=== PATIENT | male | born 1980 | race Caucasian/White ===

== ENCOUNTER 2022-10-10 22:01 | Observation (INO) | payer OTHER, SELFPAY ==
[2022-10-10 22:09] VITALS: BP 160/98; PULSE 67; RESP 16; TEMP 36.6; O2SAT 98; BMI 26.4
--- NOTE | 2022-10-10 22:27 | PC.NURSE ---
patient states developed abdominal pain with nausea and vomiting yesterday around 3am. states he has been unable to keep anything down and keeps vomiting bile. states he has always had stomach problems . had gallbladder removed 2years ago and states he has continued to have complications since then. tried zofran and phenergan at home and has had no relief. patient pacing back and forth in room and states he is in too much pain and can not get comfortable. states he had pain to bilateral sides of abdomen that feel like spasms and cramps .
[2022-10-10 23:22] LABS: Basophils Percent Auto 0.2 % (0.2-2.0); Hematocrit 46.7 % (42.0-54.0); Hemoglobin 16.4 g/dL (14.0-18.0); Immature Granulocytes Abs Auto 0.15 10^3/uL (0.00-0.03); Immature Granulocytes Pct Auto 0.7 % (0.0-0.5); Lymphocytes Absolute Auto 2.7 10^3/uL (1.2-3.8); Lymphocytes Percent Auto 12.5 % (20.5-60.0); Mean Corpuscular HGB Conc 35.1 g/dL (29.9-35.2); Mean Corpuscular Hemoglobin 31.4 pg (25.9-34.0); Mean Corpuscular Volume 89.5 fL (80.0-94.0); Mean Platelet Volume 10.7 fL (9.5-13.5); Monocytes Absolute Auto 1.5 10^3/uL (0.3-0.8); Monocytes Percent Auto 6.9 % (1.7-12.0); Neutrophils Absolute Auto 17.4 10^3/uL (1.4-6.5); Neutrophils Percent Auto 79.7 % (43.0-75.0); Platelet Count 334 10^3/uL (150-450); Red Blood Count 5.22 10^6/uL (4.70-6.10); Red Cell Distribution Width 11.9 % (11.0-15.0); White Blood Count 21.8 10^3/uL (4.0-11.0)
[2022-10-10] MEDS: 0.9 % SODIUM CHLORIDE 1,000 ML 999 ML (23:25)
[2022-10-10] MEDS: FAMOTIDINE/PF 20 MG/2 ML VIAL IV (23:25)
[2022-10-10] MEDS: ONDANSETRON PF 4 MG/2 ML VIAL IV (23:25)
[2022-10-10] MEDS: KETOROLAC TROMETHAMINE 30 MG/ML VIAL IVP (23:25)
[2022-10-10 23:36] LABS: Alanine Aminotransferase 32 U/L (16-63); Albumin Globulin Ratio 1.7; Alkaline Phosphatase 92 U/L (46-116); Anion Gap 18.4; Aspartate Amino Transferase 56 U/L (15-37); BUN Creatinine Ratio 11.8; Bilirubin Total 0.7 mg/dL (0.2-1.0); Calcium 10.5 mg/dL (8.5-10.1); Chloride 96 mmol/L (98-107); Estimated GFR (African America 38 (>=60); Estimated GFR (Non-African Ame 32 (>=60); Globulin 3.6 g/dL; Glucose 124 mg/dL (74-106); Potassium 3.4 mmol/L (3.5-5.1); Sodium 133 mmol/L (136-145); Total Protein 9.6 g/dL (6.4-8.2)
--- NOTE | 2022-10-10 23:43 | ED_ITS ---
HPI - Nausea/Vomiting/Diarrhea General Chief complaint: Nausea/Vomiting/Diarrhea Stated complaint: NAUSEA/VOMITING Time Seen by Provider: 10/10/22 22:59 Source: patient History of Present Illness HPI Narrative: 42-year-old male presents for evaluation of nausea, vomiting, diarrhea. He states he always has diarrhea so that is not anything new for him but today he has vomited over 20 times starting around 5am yesterday morning. He states he is using Zofran and Phenergan and cannot keep anything down. He is having intermittent abdominal cramping. He states cramping is on the right and left sides. He has not had a fever. He denies any chest pain or shortness of breath. He denies alcohol use but admits to occasional marijuana use but does not think his symptoms are related to marijuana use. He is status post cholecystectomy several years ago. He states he is scheduled to have an endoscopy and colonoscopy in [place] in the near future. Any hematemesis or hematochezia. He states these symptoms are ongoing and reoccurring and when he gets like this he needs to have IV fluids and IV nausea medications. Related Data Allergies Allergy/AdvReac Type Severity Reaction Status Date / Time No Known Drug Allergies Allergy Verified 10/10/22 22:16 Review of Systems ROS Status of ROS 10 or more systems reviewed and unremarkable except as noted in history and below [facility] Social History Smoking status: Current every day smoker Exam Narrative Exam Narrative: Nurses note and vital signs reviewed and patient is not hypoxic. Pressure is notably elevated at 160/98 General: The patient appears Anxious and is pacing around the room, no active vomiting noted Skin: Warm, dry, no pallor noted. There is no rash noted. Head: Normocephalic, atraumatic Eye: Normal conjunctiva, no drainage, EOMI. PERRL Ears, Nose, Mouth, and Throat: oral mucosa is sticky. Nares patent. Mouth without vesicles. Cardiovascular: Regular Rate and Rhythm, No murmurs rubs or gallops Respiratory: Patient is in no distress, no accessory muscle use, lungs are clear to auscultation, no wheezing, rales or rhonchi Back: non-tender, no CVA tenderness bilaterally to percussion. GI: Normal bowel sounds, Abdomen is soft, flat, generalized abdominal tenderness noted, no specific tenderness in the right lower quadrant or left upper quadrant Musculoskeletal: The patient has no evidence of calf tenderness, no pitting edema, symmetrical pulses noted bilaterally Neurological: A&O x4, normal speech, No focal deficits Psychiatric: Cooperative, Anxious Constitutional Vital Signs, click to edit/add: Last Vital Signs Temp 97.8 F 10/10/22 22:09 Pulse 72 10/11/22 02:11 Resp 16 10/11/22 02:11 BP 160/98 H 10/10/22 22:09 Pulse Ox 100 10/11/22 02:11 Course Vital Signs Vital signs: Vital Signs Temperature 97.8 F 10/10/22 22:09 Pulse Rate 67 10/10/22 22:09 Respiratory Rate 16 10/10/22 22:09 Blood Pressure 160/98 H 10/10/22 22:09 Pulse Oximetry 98 10/10/22 22:09 Temperature 97.8 F 10/10/22 22:09 Pulse Rate 72 10/11/22 02:11 Respiratory Rate 16 10/11/22 02:11 Blood Pressure 160/98 H 10/10/22 22:09 Pulse Oximetry 100 10/11/22 02:11 MDM - Nausea/Vomiting/Diarrhea MDM Narrative Medical decision making narrative: This 42-year-old male who is status post cholecystectomy approximately 2 years ago and has chronic abdominal pain, chronic diarrhea and is supposed to have an endoscopy and colonoscopy In [place] in the near future presents for Valuation of nausea, vomiting, diarrhea and abdominal pain. The patient states he is unable to keep anything down. His symptoms started around 5 AM yesterday morning. He thinks he has vomited over 20 times. His diarrhea is at his baseline. He is not having any hematemesis or hematochezia. He denies any chest pain or shortness of breath. Upon arrival he was pacing around the room. Blood pressure was noted to be elevated. He had a normal pulse 72. His belly was diffusely tender but soft with no focal tenderness. An IV was placed and he was given IV fluids, Toradol, Pepcid and Zofran. Routine labs are reviewed. He has an elevated white count at 21.8 with an elevated hemoglobin at 16.8.. He also has an elevated BUN/creatinine of 27/2.82. Potassium is normal at 3.4. LFTs and lipase were normal. Noncontrast CT scan was ordered due to the elevated white count and does not show any acute intra-abdominal findings. The patient was given an additional bolus of normal saline, 1 mg of IV Ativan due to his anxiety and inability to lie down on the bed, instead he was pacing around the room and encroaching down on the floor. He is also given 4 mg of IV morphine. He did not have any recurrent notable nausea or vomiting however he stated to me that he was dry heaving in the garbage can in the room. He was able to tolerate ice chips and Gatorade. Due to the dehydration with the elevated white count, contracted hemoglobin and acute kidney injury today, he was admitted for observation and further evaluation. The case was discussed with the hospitalist and the patient was accepted for admission. Lab Data Labs: Lab Results 10/10/22 Range/Units 22:21 WBC 21.8 H (4.0-11.0) 10^3/uL RBC 5.22 (4.70-6.10) 10^6/uL Hgb 16.4 (14.0-18.0) g/dL Hct 46.7 (42.0-54.0) % MCV 89.5 (80.0-94.0) fL MCH 31.4 (25.9-34.0) pg MCHC 35.1 (29.9-35.2) g/dL RDW 11.9 (11.0-15.0) % Plt Count 334 (150-450) 10^3/uL MPV 10.7 (9.5-13.5) fL Neut % (Auto) 79.7 H (43.0-75.0) % Lymph % (Auto) 12.5 L (20.5-60.0) % [place] % (Auto) 6.9 (1.7-12.0) % Eos % (Auto) 0.0 L (0.9-7.0) % Baso % (Auto) 0.2 (0.2-2.0) % Neut # (Auto) 17.4 H (1.4-6.5) 10^3/uL Lymph # (Auto) 2.7 (1.2-3.8) 10^3/uL [place] # (Auto) 1.5 H (0.3-0.8) 10^3/uL Eos # (Auto) 0.0 (0.0-0.7) 10^3/uL Baso # (Auto) 0.0 (0.0-0.1) 10^3/uL Abs Immat Gran (auto) 0.15 H (0.00-0.03) 10^3/uL Imm/Tot Granulo (auto) 0.7 H (0.0-0.5) % Sodium 133 L (136-145) mmol/L Potassium 3.4 L (3.5-5.1) mmol/L Chloride 96 L (98-107) mmol/L Carbon Dioxide 22.0 (21.0-32.0) mmol/L Anion Gap 18.4 BUN 27.0 H (7.0-18.0) mg/dL Creatinine 2.28 H (0.70-1.30) mg/dL Est GFR ( Amer) 38 L (>=60) Est GFR (Non-Af Amer) 32 L (>=60) BUN/Creatinine Ratio 11.8 Glucose 124 H (74-106) mg/dL Lactate 2.0 (0.4-2.0) mmol/L Calcium 10.5 H (8.5-10.1) mg/dL Total Bilirubin 0.7 (0.2-1.0) mg/dL AST 56 H (15-37) U/L ALT 32 (16-63) U/L Alkaline Phosphatase 92 (46-116) U/L Troponin I High Sens 20.0 (4.0-76.1) pg/mL Total Protein 9.6 H (6.4-8.2) g/dL Albumin 6.0 H (3.4-5.0) g/dL Globulin 3.6 g/dL Albumin/Globulin Ratio 1.7 Lipase 31.0 L (73.0-393.0) U/L Discharge Plan Discharge Chief Complaint: Nausea/Vomiting/Diarrhea Clinical Impression: Acute kidney injury, Nausea and vomiting, Abdominal pain, chronic, generalized Patient Disposition: Admitted as Observation Time of Disposition Decision: 02:28 Condition: Fair Critical Care Time Critical Care Time Critical Care Time: Yes Total Critical Care Time: 40 Attestation: .
--- NOTE | 2022-10-10 23:58 | CT_ITS ---
The [address] [address] Patient Name: MAURICIO HAYNES MRN: [id number] date: 1980 Sex: M Assigned Patient Location: ER Current Patient Location: ER Accession/Order Number: [id number] Exam Date: 10/10/2022 23:59 Report Date: 10/11/2022 01:03 At the request of: CESARIO MARKER Procedure: CT abdomen pelvis wo con EXAM: CT abdomen pelvis wo con HISTORY: abd pain, leukocytosis COMPARISON: CT abdomen and pelvis examination dated 04/12/2021. TECHNIQUE: Noncontrast axial CT images through the abdomen and pelvis were obtained with coronal and sagittal reformats. Dose reduction techniques were achieved by using automated exposure control and/or adjustment of mA and/or kV according to patient size and/or use of iterative reconstruction technique. FINDINGS: The visualized portions of the lung bases are clear. Abdomen: Please note that the sensitivity for detection of focal lesions or vascular disease is markedly reduced without intravenous contrast. The liver and spleen are unremarkable. There is no intra or extrahepatic biliary duct dilatation. The gallbladder is surgically absent. There are scattered colonic diverticula without evidence of acute inflammation. Otherwise, the pancreas, adrenal glands, kidneys, and bowel loops, including the appendix, are unremarkable. There is no mesenteric or retroperitoneal lymphadenopathy. There is a small fat-containing umbilical hernia. Pelvis: The bladder and rectum are unremarkable. There is no iliac or inguinal lymphadenopathy. There is mild atherosclerotic disease. Bone windows show no aggressive osseous lesions. CT/CT abdomen pelvis wo con IMPRESSION: 1. No specific etiology identified to explain the patient's abdominal pain. 2. Status post cholecystectomy. 3. Normal appendix. 4. Scattered colonic diverticula without evidence of acute inflammation. Electronically authenticated by: Arnol MARAVILLA Date: 10/11/2022 01:03
[2022-10-11] MEDS: LORAZEPAM 2 MG/ML 1 ML VIAL 1 MG IV (00:30)
[2022-10-11] MEDS: 0.9 % SODIUM CHLORIDE 1,000 ML 1000 ML IV (01:39)
[2022-10-11 01:50] VITALS: BP 140/88
[2022-10-11] MEDS: MORPHINE SULFATE 4 MG/ML VIAL IV (02:10)
[2022-10-11 02:11] VITALS: PULSE 72; RESP 16; O2SAT 100
[2022-10-11 02:38] LABS: Bilirubin Urine MODERATE (NEGATIVE); Blood Urine TRACE-I (NEGATIVE); Clarity Urine CLEAR (CLEAR); Color Urine DK. ORANGE (YELLOW); Glucose Urine UA NEGATIVE (NEGATIVE); Ketones Urine TRACE mg/dL (NEGATIVE); Leukocyte Esterase Urine NEGATIVE (NEGATIVE); Nitrite Urine NEGATIVE (NEGATIVE); Protein Urine 100 mg/dL (NEG/TRACE); Specific Gravity Urine >=1.030 (1.005-1.025); pH Urine 5.5 (5.0-9.0)
[2022-10-11 02:44] LABS: Bacteria Urine SMALL #/HPF (NONE SEEN); Mucus Urine TRACE (NONE SEEN); RBC Urine 0-2 #/HPF (0-2); Squamous Epithelial Cell Urine FEW #/LPF (NONE/RARE); WBC Urine 0-2 #/HPF (NONE SEEN)
[2022-10-11 02:45] LABS: Cast Seen? SEEN #/LPF (NONE SEEN); Crystals Seen? None Seen #/HPF (None Seen); Hyaline Casts Urine RARE; Urine Culture Indicated YES
[2022-10-11 02:54] VITALS: BP 124/79; PULSE 52; RESP 18; TEMP 36.4; O2SAT 96; BMI 25.0
--- NOTE | 2022-10-11 04:29 | W.PM.TELEPN ---
Progress Note: Subjective Subjective Interval history: The patient is a 2-year-old male who underwent cholecystectomy 2 years ago and since that he has been having intermittent abdominal pain, nausea vomiting and diarrhea. His symptoms started at 5 AM and he had intractable vomiting for over 20 times. He denies any sick contacts or any new medications. He has 6 out of 10 abdominal pain. In the ED, he was given IV fluids, Zofran, Pepcid, morphine and Ativan. He is also noted to have significant leukocytosis as well as worsening renal insufficiency with a creatinine of 2.2. He is being admitted for further evaluation. Exam Narrative Exam Narrative: General : Alert and oriented x3 HEENT : Extraocular movements intact, pupils equal round and reactive to light and accommodation Neck: Supple, no JVD Chest: Clear to auscultation bilaterally, no wheezes Heart: Regular rate and rhythm, S1 and S2 heard Abdomen: Soft nontender nondistended. Extremities: No clubbing cyanosis or edema Neurologically: Moving all 4 extremities Skin: No rashes Constitutional Vital Signs, click to edit/add: Last Vital Signs Temp 97.6 F 10/11/22 02:54 Pulse 52 L 10/11/22 02:54 Resp 18 10/11/22 02:54 BP 124/79 H 10/11/22 02:54 Pulse Ox 96 10/11/22 02:54 O2 Del Method Room Air 10/11/22 02:54 Progress Note: Objective Labs Labs: Short CBC 10/10/22 Range/Units 22:21 WBC 21.8 H (4.0-11.0) 10^3/uL Hgb 16.4 (14.0-18.0) g/dL Hct 46.7 (42.0-54.0) % Plt Count 334 (150-450) 10^3/uL BMP 10/10/22 22:21 Sodium 133 L Potassium 3.4 L Chloride 96 L Carbon Dioxide 22.0 BUN 27.0 H Creatinine 2.28 H Glucose 124 H Calcium 10.5 H Liver Function 10/10/22 Range/Units 22:21 Total Bilirubin 0.7 (0.2-1.0) mg/dL AST 56 H (15-37) U/L ALT 32 (16-63) U/L Alkaline Phosphatase 92 (46-116) U/L Albumin 6.0 H (3.4-5.0) g/dL Urine 10/11/22 Range/Units 02:20 Urine Color Dk. orange (YELLOW) Urine Clarity Clear (CLEAR) Urine pH 5.5 (5.0-9.0) Ur Specific [place] >=1.030 A (1.005-1.025) Urine Protein 100 A (NEG/TRACE) mg/dL Urine Glucose (UA) Negative (NEGATIVE) mg/dL Progress Note: A&P Assessment and Plan (1) Acute kidney injury: (2) Nausea and vomiting: (3) Abdominal pain, chronic, generalized: Plan The patient is a 42-year-old male with above medical problems, presenting with intractable nausea and vomiting and acute kidney injury. Intractable nausea and vomiting -Provide supportive care -IV hydration -Antiemetics -IV PPI -Check urine drug screen Anxiety -Ativan IV as needed Acute kidney injury -Likely from prerenal azotemia -Provide IV fluids -Monitor renal function Leukocytosis -Likely reactive from intractable vomiting -No need to start antibiotics now but if patient develops fever or there is a source of infection, can start antibiotics then. Nicotine dependence -Provide nicotine patch DVT Prophylaxis -Lovenox, SCDs Medication review -Medication reconciliation form completed Goals of care -Full code Communications -Discussed with the emergency room physician -Discussed with the bedside nurse -Patient updated of plan of care, all questions answered to their satisfaction Disposition -Home when medically stable Telemedicine clause -As the provider of this telehealth evaluation, requested by the patient's evaluating physician, I attest that I introduced myself to the patient, provided my credentials and determined that telemedicine via a real-time, two-way interactive audio and video platform is an appropriate and effective means of providing this service. -I reviewed the patient's chart and had a discussion with the member of the patient's treatment team. -The patient and I mutually agreed with continuation of this evaluation via telemedicine. The patient consented for the telemedicine evaluation. -This virtual encounter was taken place from [place], [place]. The encounter was approximately 35 minutes. The nurse was present during the entire time of the encounter and was able to remove the stethoscope and appropriate directions. The patient was evaluated at [facility] Telemedicine Attestation Telemedicine Attestation I conducted this encounter from [] via secure live, [id number] video conference with the patient, located at [facility] with []. Prior to the interview, the risks and benefits of telemedicine were discussed with the patient and verbal consent was obtained.
[2022-10-11 05:09] LABS: Amphetamine Screen Urine NEGATIVE (NEGATIVE); Cannabinoid Screen Urine POSITIVE (NEGATIVE); Cocaine Screen Urine NEGATIVE (NEGATIVE); Methamphetamines Screen Urine NEGATIVE (NEGATIVE); Opiate Screen Urine NEGATIVE (NEGATIVE); Phencyclidine Screen Urine NEGATIVE (NEGATIVE)
[2022-10-11 05:10] LABS: Barbiturates Screen Urine NEGATIVE (NEGATIVE); Benzodiazepines Screen Urine POSITIVE (NEGATIVE); Buprenorphine Screen Urine NEGATIVE (NEGATIVE); Methadone Screen Urine NEGATIVE (NEGATIVE); Oxycodone Screen Urine NEGATIVE (NEGATIVE); Tricyclic Antidepressant Urine NEGATIVE (NEGATIVE)
[2022-10-11 05:13] LABS: Basophils Percent Auto 0.2 % (0.2-2.0); Eosinophils Percent Auto 0.1 % (0.9-7.0); Hematocrit 42.4 % (42.0-54.0); Hemoglobin 14.2 g/dL (14.0-18.0); Immature Granulocytes Abs Auto 0.05 10^3/uL (0.00-0.03); Immature Granulocytes Pct Auto 0.4 % (0.0-0.5); Lymphocytes Absolute Auto 3.6 10^3/uL (1.2-3.8); Lymphocytes Percent Auto 25.6 % (20.5-60.0); Mean Corpuscular HGB Conc 33.5 g/dL (29.9-35.2); Mean Corpuscular Hemoglobin 30.7 pg (25.9-34.0); Mean Corpuscular Volume 91.8 fL (80.0-94.0); Mean Platelet Volume 10.3 fL (9.5-13.5); Monocytes Absolute Auto 1.2 10^3/uL (0.3-0.8); Monocytes Percent Auto 8.6 % (1.7-12.0); Neutrophils Absolute Auto 9.3 10^3/uL (1.4-6.5); Neutrophils Percent Auto 65.1 % (43.0-75.0); Platelet Count 246 10^3/uL (150-450); Red Blood Count 4.62 10^6/uL (4.70-6.10); Red Cell Distribution Width 12.1 % (11.0-15.0); White Blood Count 14.2 10^3/uL (4.0-11.0)
[2022-10-11 05:17] LABS: BUN Creatinine Ratio 15.2; Calcium 9.1 mg/dL (8.5-10.1); Carbon Dioxide 22.6 mmol/L (21.0-32.0); Chloride 101 mmol/L (98-107); Estimated GFR (African America 40 (>=60); Estimated GFR (Non-African Ame 33 (>=60); Glucose 119 mg/dL (74-106); Potassium 3.6 mmol/L (3.5-5.1); Sodium 136 mmol/L (136-145)
[2022-10-11] MEDS: 0.9 % SODIUM CHLORIDE 1,000 ML 125 ML IV ×2 (05:23→13:50)
[2022-10-11] MEDS: FAMOTIDINE/PF 20 MG/2 ML VIAL IV (05:23)
[2022-10-11 05:31] VITALS: BP 96/56; PULSE 52; RESP 16; TEMP 36.7; O2SAT 93
[2022-10-11 08:00] VITALS: RESP 16
--- NOTE | 2022-10-11 08:53 | PM.HP ---
H&P: HPI History of Present Illness Chief complaint: NAUSEA/VOMITING, DEHYDRATION, PANCHO Narrative: patient is a 42-year-old male with past medical history of cyclic vomiting and chronic diarrhea. He has been admitted prior and also reports this happens once every six months. He tried Zofran and Phenergan prior to arrival in the emergency department but also ran out of hyoscyamine. He denies any fevers chills or any sick contacts and reports he vomited approximately twenty times before arriving in the Emergency Room. His creatinine was found to be elevated at 2.17 B1 of thirty-three slight white count elevation say CT scan of abdomen and pelvis was performed which showed no acute findings with the exception of an incidental finding of a small umbilical hernia. At the time of admission exam patient reports overall improvement with IV fluids and antiemetics patient wishes to go home today if possible. He reports he has an appointment in [place] for an outpatient EGD and colonoscopy soon. His urine drug screen was positive for marijuana. Review of Systems ROS Narrative ROS: a complete review of systems were reviewed with patient and are positive as below or listed in History of Chief Complaint. General: no fever, chills, night sweats Head: no headache, trauma, visual changes, nausea or vomiting Skin: no reported rashes, itching or sores Eyes: no blurriness of vision Ears: no reported hearing loss, vertigo, earache, or tinnitus Throat: no sore throat, hoarseness, swelling of neck, or tongue pain Heart: no chest pain Lungs: no shortness of breath or cough GI: diarrhea, vomiting/nausea Urinary: no urinary urgency, frequency or pain Neuro: no numbness or tingling HEM: no bleeding issues or bruising ENDO: no thyroid problems Psych: no anxiety or depression [facility] Medical History (Updated 10/11/22 @ 12:32 by Bree Aguirre DO) Surgical History Family History Grandmother Family history of CHF (congestive heart failure) Family history of cancer Family history of diabetes mellitus Aunt Family history of hypertension Uncle Family history of COPD (chronic obstructive pulmonary disease) Social History (Reviewed 10/11/22 @ 12:31 by RAQUEL Das Within the past year, how often did you have a drink containing alcohol: never Score interpretation: A score less than 4 is consistent with normal alcohol consumption. 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 Highest level of school completed/degree received: some college, no degree Are you now , , , , never or living with a partner: living with partner In a typical week, how many times do you talk on the telephone with family, friends, or neighbors: once per week How often do you get together with friends or relatives: twice per week How often do you attend synagogue or advent services: never Do you belong to any clubs or organizations such as synagogue groups unions, [employer] or athletic groups, or school groups: yes Total score: 3 Score interpretation: A score of greater than or equal to 2 indicates the lowest level of social isolation. Little interest or pleasure in doing things: not at all Feeling down, depressed, or hopeless: not at all Feel stressed/tense/nervous/anxious/difficulty sleeping: only a little Life stressors: recent of family or friend Do you think of yourself as: straight/heterosexual Gender Identity: male Meds Home Medications and Allergies Home Medications Medication Instructions Recorded Confirmed Type capsaicin 0.1 % topical cream 1 applic topical DAILY 10/11/22 10/11/22 History hyoscyamine sulfate 0.125 mg tablet 0.125 mg PO Q12H PRN dyspepsia 10/11/22 10/11/22 History ondansetron 4 mg disintegrating 4 mg PO Q6H PRN nausea and vomiting 10/11/22 10/11/22 History tablet pantoprazole 40 mg tablet,delayed 40 mg PO DAILY 10/11/22 10/11/22 History release Allergies Allergy/AdvReac Type Severity Reaction Status Date / Time No Known Drug Allergies Allergy Verified 10/10/22 22:16 Exam Narrative Exam Narrative: General: Patient is alert, and oriented to person, place and time with normal affect, proper hygiene Skin: no visible rashes, or ulcers Head: atraumatic, acephalic Eyes: PERRLA, no nystagmus present, conjunctiva clear, no scleral icterus Ears: normal Tympanic Membrane, normal gross auditory acuity Nose: symmetric, no discharge, no maxillary or frontal sinus tenderness Mouth/Throat: no erythema, exudate, or tonsillar enlargement, normal dentition Neck: no masses palpated, normal thyroid, no JVD or audible carotid bruits Heart: Normal rate and rhythm, no murmurs/rubs/gallops Lungs: no audible wheezes, crackles and normal breath sounds all lung longoria Abdomen: Normal audible bowel sounds, no distension, No palpable masses, no organomegaly, no rebound/guarding/ or rigidity; i could not appreciate an umbilical hernia that was seen on CT scan Musculoskeletal: muscle atrophy noted, ROM is limited due to being in hospital bed, no swelling bilateral lower extremities Vascular: Normal carotid, radial, femoral, posterior tibial, and dorsalis pedis pulses Lymph: no supraclavicular, axillary, or anterior/posterior cervical adenopathy Neuro: CN II-X grossly intact, normal sensation upper and lower extremities Constitutional Vital Signs, click to edit/add: Last Vital Signs Temp 98.0 F 10/11/22 05:31 Pulse 52 L 10/11/22 05:31 Resp 16 10/11/22 05:31 BP 96/56 L 10/11/22 05:31 Pulse Ox 93 L 10/11/22 05:31 O2 Del Method Room Air 10/11/22 05:31 Results Labs Labs: Short CBC 10/10/22 10/11/22 Range/Units 22:21 04:55 WBC 21.8 H 14.2 H (4.0-11.0) 10^3/uL Hgb 16.4 14.2 (14.0-18.0) g/dL Hct 46.7 42.4 (42.0-54.0) % Plt Count 334 246 (150-450) 10^3/uL BMP 10/10/22 10/11/22 22:21 04:55 Sodium 133 L 136 Potassium 3.4 L 3.6 Chloride 96 L 101 Carbon Dioxide 22.0 22.6 BUN 27.0 H 33.0 H Creatinine 2.28 H 2.17 H Glucose 124 H 119 H Calcium 10.5 H 9.1 Liver Function 10/10/22 Range/Units 22:21 Total Bilirubin 0.7 (0.2-1.0) mg/dL AST 56 H (15-37) U/L ALT 32 (16-63) U/L Alkaline Phosphatase 92 (46-116) U/L Albumin 6.0 H (3.4-5.0) g/dL Urine 10/11/22 Range/Units 02:20 Urine Color Dk. orange (YELLOW) Urine Clarity Clear (CLEAR) Urine pH 5.5 (5.0-9.0) Ur Specific [place] >=1.030 A (1.005-1.025) Urine Protein 100 A (NEG/TRACE) mg/dL Urine Glucose (UA) Negative (NEGATIVE) mg/dL Assessment and Plan Assessment and Plan (1) Acute kidney injury: (2) Nausea and vomiting: (3) Abdominal pain, chronic, generalized: (4) Umbilical hernia without obstruction and without gangrene: Plan continue IV fluids and as needed antiemetics, patient has improved this morning,once patient is tolerating by mouth we'll send patient home with a refill on his anti-emetics. Full code Lovenox for deep vein thrombosis prophylaxis Patient as an observation status and is not expected to stay more than two midnights
[2022-10-11] MEDS: NICOTINE 14 MG PATCH.TD24 TD (09:03)
[2022-10-11] MEDS: CAPSAICIN 0.025% CREAM 60 GM TUBE 1 APPLIC TOPICAL (09:03)
[2022-10-11] MEDS: ENOXAPARIN SODIUM 40 MG/0.4 ML SYRINGE SUBQ (09:03)
[2022-10-11 11:23] VITALS: O2SAT 96
--- NOTE | 2022-10-11 11:29 | CM.NOTE ---
Rounds made with Dr. Aguirre. Potential discharge later today if able to tolerate a meal. No needs identified.
--- NOTE | 2022-10-11 12:42 | P.DS_ITS ---
DS: Providers Provider Date of admission: 10/11/22 02:25 [facility] Admitting clinician: Keyla Sanabria Attending physician on discharge: Bree Aguirre DS: Diagnosis Discharge Diagnosis (1) Acute kidney injury: (2) Nausea and vomiting: (3) Abdominal pain, chronic, generalized: (4) Umbilical hernia without obstruction and without gangrene: DS: Summary Hospital Course Hospital Course: continue IV fluids and as needed antiemetics, patient has improved this morning, tolerated some lunch, holding down liquids, patient wishes to go home, refill given on hhyscyamine and zofran, follow up with pcp to recheck renal function, push fluids at home, Discussed incidental finding of umbilical hernia, no strangulation, given signs and symptoms of need for evaluation. I could not even palpate on exam. Seen on CT scan Status at Discharge Functional status at discharge: independent ambulation Overall status at discharge: patient is back to baseline Time Spent with Patient Time attestation: Total time spent providing and/or coordinating discharge services: Exam Narrative Exam Narrative: no changes to the physical exam dated 10/11/2022 on the H and P Constitutional Vital Signs, click to edit/add: Last Vital Signs Temp 98.0 F 10/11/22 05:31 Pulse 52 L 10/11/22 05:31 Resp 16 10/11/22 08:00 BP 96/56 L 10/11/22 05:31 Pulse Ox 96 10/11/22 11:23 O2 Del Method Room Air 10/11/22 11:23 DS: Data Data Completed and Pending Labs on day of discharge: Labs from last 24 hours 10/11/22 10/11/22 10/11/22 04:55 04:30 02:20 WBC 14.2 H RBC 4.62 L Hgb 14.2 Hct 42.4 MCV 91.8 MCH 30.7 MCHC 33.5 RDW 12.1 Plt Count 246 MPV 10.3 Neut % (Auto) 65.1 Lymph % (Auto) 25.6 Evans % (Auto) 8.6 Eos % (Auto) 0.1 L Baso % (Auto) 0.2 Neut # (Auto) 9.3 H Lymph # (Auto) 3.6 Evans # (Auto) 1.2 H Eos # (Auto) 0.0 Baso # (Auto) 0.0 Abs Immat Gran (auto) 0.05 H Imm/Tot Granulo (auto) 0.4 Sodium 136 Potassium 3.6 Chloride 101 Carbon Dioxide 22.6 Anion Gap 16.0 BUN 33.0 H Creatinine 2.17 H Est GFR ( Amer) 40 L Est GFR (Non-Af Amer) 33 L BUN/Creatinine Ratio 15.2 Glucose 119 H Lactate Calcium 9.1 Total Bilirubin AST ALT Alkaline Phosphatase Troponin I High Sens Total Protein Albumin Globulin Albumin/Globulin Ratio Lipase Urine Color Dk. orange Urine Clarity Clear Urine pH 5.5 Ur Specific [place] >=1.030 A Urine Protein 100 A Urine Glucose (UA) Negative Urine Ketones Trace A Urine Occult Blood Trace-i Urine Nitrite Negative Urine Bilirubin Moderate A Urine Urobilinogen 1.0 Ur Leukocyte Esterase Negative Urine RBC 0-2 Urine WBC 0-2 A Ur Squamous Epith Cells Few A Urine Crystals None seen Urine Bacteria Small A Urine Casts Seen A Hyaline Casts Rare Urine Mucus Trace A Ur Culture Indicated? Yes Urine Opiates Screen Negative Ur Buprenorphine Scrn Negative Ur Oxycodone Screen Negative Urine Methadone Screen Negative Ur Propoxyphene Screen Negative Ur Barbiturates Screen Negative U Tricyclic Antidepress Negative Ur Phencyclidine Scrn Negative Ur Amphetamines Screen Negative U Methamphetamines Scrn Negative U Benzodiazepines Scrn Positive A Urine Cocaine Screen Negative U Cannabinoids Screen Positive A 10/10/22 22:21 WBC 21.8 H RBC 5.22 Hgb 16.4 Hct 46.7 MCV 89.5 MCH 31.4 MCHC 35.1 RDW 11.9 Plt Count 334 MPV 10.7 Neut % (Auto) 79.7 H Lymph % (Auto) 12.5 L [place] % (Auto) 6.9 Eos % (Auto) 0.0 L Baso % (Auto) 0.2 Neut # (Auto) 17.4 H Lymph # (Auto) 2.7 Evans # (Auto) 1.5 H Eos # (Auto) 0.0 Baso # (Auto) 0.0 Abs Immat Gran (auto) 0.15 H Imm/Tot Granulo (auto) 0.7 H Sodium 133 L Potassium 3.4 L Chloride 96 L Carbon Dioxide 22.0 Anion Gap 18.4 BUN 27.0 H Creatinine 2.28 H Est GFR ( Amer) 38 L Est GFR (Non-Af Amer) 32 L BUN/Creatinine Ratio 11.8 Glucose 124 H Lactate 2.0 Calcium 10.5 H Total Bilirubin 0.7 AST 56 H ALT 32 Alkaline Phosphatase 92 Troponin I High Sens 20.0 Total Protein 9.6 H Albumin 6.0 H Globulin 3.6 Albumin/Globulin Ratio 1.7 Lipase 31.0 L Urine Color Urine Clarity Urine pH Ur Specific [place] Urine Protein Urine Glucose (UA) Urine Ketones Urine Occult Blood Urine Nitrite Urine Bilirubin Urine Urobilinogen Ur Leukocyte Esterase Urine RBC Urine WBC Ur Squamous Epith Cells Urine Crystals Urine Bacteria Urine Casts Hyaline Casts Urine Mucus Ur Culture Indicated? Urine Opiates Screen Ur Buprenorphine Scrn Ur Oxycodone Screen Urine Methadone Screen Ur Propoxyphene Screen Ur Barbiturates Screen U Tricyclic Antidepress Ur Phencyclidine Scrn Ur Amphetamines Screen U Methamphetamines Scrn U Benzodiazepines Scrn Urine Cocaine Screen U Cannabinoids Screen Discharge Plan Discharge Disposition: Home, Self-Care (OBS FBC) Condition: Fair Discharge Medications: Continued pantoprazole 40 mg tablet,delayed release (DR/EC) 40 mg PO DAILY capsaicin 0.1 % cream 1 applic TOPICAL DAILY ondansetron 4 mg tablet,disintegrating 4 mg PO Q6H PRN (Reason: nausea and vomiting) Qty: 28 0RF hyoscyamine sulfate 0.125 mg tablet 0.125 mg PO Q12H PRN (Reason: dyspepsia) 15 Days Qty: 30 0RF Activity: increase activity as tolerated Diet: advance to your usual diet Referrals: [facility] [Primary Care Provider] - 1 week Follow Up Appointments: pcp 5-7 days for BMP (recheck renal function)
== END 2022-10-11 14:55 | disposition home or self-care (01) ==
LOC: ER 22:43 → MS 10-11 02:26
PROVIDERS: Admitting Provider Internal Medicine; Emergency Provider Emergency Medicine; Visit Provider Family Medicine
DX: N17.9 Acute kidney failure, unspecified (principal); R11.2 Nausea with vomiting, unspecified; R10.84 Generalized abdominal pain; G89.29 Other chronic pain; K42.9 Umbilical hernia without obstruction or gangrene; F41.9 Anxiety disorder, unspecified; D72.829 Elevated white blood cell count, unspecified; F17.210 Nicotine dependence, cigarettes, uncomplicated; Z79.899 Other long term (current) drug therapy; Z90.49 Acquired absence of other specified parts of digestive tract
CPT/HCPCS: 36415; 74176; 80048; 80053; 80307; 81001; 83605; 83690; 84484; 85025; 87086; 96361; 96372; 96374; 96375; 96376; 99285; G0378; Q3014

== ENCOUNTER 2022-10-12 03:10 | Emergency (ER) | payer OTHER, SELFPAY ==
[2022-10-12 03:17] VITALS: BP 150/96; PULSE 64; RESP 18; TEMP 36.7; O2SAT 97; BMI 25.1
--- NOTE | 2022-10-12 03:17 | XR_ITS ---
The [address] [address] Patient Name: MAURICIO HAYNES MRN: [id number] date: 1980 Sex: M Assigned Patient Location: [place] Current Patient Location: .MAIN Accession/Order Number: [id number] Exam Date: 10/12/2022 03:45 Report Date: 10/12/2022 04:25 At the request of: IRINEO MÁRQUEZ Procedure: XR acute abdomen series EXAM: XR acute abdomen series HISTORY: abd pain COMPARISON: None. TECHNIQUE: One view of the chest and 2 views of the abdomen were obtained. FINDINGS: The cardiac silhouette is normal in size. The lungs are clear. There is no significant pneumothorax or pleural effusion. No acute osseous abnormality is seen. There is a nonspecific bowel gas pattern without evidence of bowel obstruction. No intraperitoneal free air is seen. Cholecystectomy clips are noted. A surgical clip is seen in the left hemipelvis. XR/XR acute abdomen series IMPRESSION: 1. No specific etiology identified to explain the patient's abdominal pain. 2. No acute cardiopulmonary abnormality. Electronically authenticated by: Arnol MARAVILLA Date: 10/12/2022 04:25
[2022-10-12] MEDS: PROMETHAZINE HCL 25 MG/ML VIAL IV (03:29)
[2022-10-12] MEDS: ONDANSETRON PF 4 MG/2 ML VIAL IV (03:29)
[2022-10-12 03:31] LABS: Basophils Percent Auto 0.2 % (0.2-2.0); Eosinophils Percent Auto 0.1 % (0.9-7.0); Hematocrit 44.8 % (42.0-54.0); Hemoglobin 15.9 g/dL (14.0-18.0); Immature Granulocytes Abs Auto 0.06 10^3/uL (0.00-0.03); Immature Granulocytes Pct Auto 0.4 % (0.0-0.5); Lymphocytes Absolute Auto 2.4 10^3/uL (1.2-3.8); Mean Corpuscular HGB Conc 35.5 g/dL (29.9-35.2); Mean Corpuscular Hemoglobin 31.6 pg (25.9-34.0); Mean Corpuscular Volume 89.1 fL (80.0-94.0); Mean Platelet Volume 10.2 fL (9.5-13.5); Monocytes Absolute Auto 0.8 10^3/uL (0.3-0.8); Monocytes Percent Auto 5.4 % (1.7-12.0); Neutrophils Absolute Auto 11.7 10^3/uL (1.4-6.5); Neutrophils Percent Auto 77.9 % (43.0-75.0); Platelet Count 307 10^3/uL (150-450); Red Blood Count 5.03 10^6/uL (4.70-6.10)
[2022-10-12 03:46] LABS: Alanine Aminotransferase 51 U/L (16-63); Albumin Globulin Ratio 1.7; Albumin Level 5.5 g/dL (3.4-5.0); Alkaline Phosphatase 85 U/L (46-116); Anion Gap 17.8; Aspartate Amino Transferase 74 U/L (15-37); BUN Creatinine Ratio 19.1; Bilirubin Total 0.9 mg/dL (0.2-1.0); Calcium 9.8 mg/dL (8.5-10.1); Carbon Dioxide 20.7 mmol/L (21.0-32.0); Chloride 101 mmol/L (98-107); Estimated GFR (African America >60 (>=60); Estimated GFR (Non-African Ame 50 (>=60); Globulin 3.2 g/dL; Glucose 133 mg/dL (74-106); Potassium 3.5 mmol/L (3.5-5.1); Sodium 136 mmol/L (136-145); Total Protein 8.7 g/dL (6.4-8.2)
[2022-10-12 03:49] LABS: Lactate/Lactic Acid 1.6 mmol/L (0.4-2.0)
[2022-10-12] MEDS: PROMETHAZINE HCL 25 MG TABLET PO (05:21)
[2022-10-12] MEDS: ONDANSETRON 4 MG RAPDIS TABLET SL (05:21)
--- NOTE | 2022-10-12 05:23 | PC.NURSE ---
When giving pt discharge instructions, he has to go into the bathroom. After in the bathroom a few minutes he asks to use the shower stating that he is very uncomfortable and that is the only thing that helps. Wait for pt to get out of the shower to finish discharge.
--- NOTE | 2022-10-12 05:33 | ED.ABDPAIN1 ---
HPI - Abdominal Pain General Chief Complaint: Abdominal Pain Stated Complaint: VOMITING Time Seen by Provider: 10/12/22 03:15 Source: patient Mode of arrival: walk-in Limitations: no limitations History of Present Illness HPI narrative: Patient presents to emergency department complaining of nausea and vomiting. Patient states he was hospitalized yesterday and discharged home at 4 PM with the same symptoms. He states he has been dry heaving and vomiting and not able to keep anything down since he went home. He also states that he has not been able to brain picker the antibiotics that he was prescribed. Patient states she's been dealing with this type of symptoms intermittently for the last 10 years. He denies any fever, chills, cough, chest pain, shortness of breath. He denies any flank pain, hematuria, dysuria. He denies any abdominal pain. He denies any hematemesis, melena, hematochezia. He denies any diarrhea. He denies any trauma or any other new symptoms. Related Data Home Medications Medication Instructions Recorded Confirmed capsaicin 0.1 % topical cream 1 applic topical DAILY 10/11/22 10/11/22 pantoprazole 40 mg tablet,delayed 40 mg PO DAILY 10/11/22 10/11/22 release Previous Rx's Medication Instructions Recorded hyoscyamine sulfate 0.125 mg tablet 0.125 mg PO Q12H PRN dyspepsia 15 10/11/22 days #30 tabs ondansetron 4 mg disintegrating 4 mg PO Q6H PRN nausea and 10/11/22 tablet vomiting #28 tabs Allergies Allergy/AdvReac Type Severity Reaction Status Date / Time No Known Drug Allergies Allergy Verified 10/12/22 03:20 Review of Systems ROS Status of ROS 10 or more systems reviewed and unremarkable except as noted in history and below [facility] Medical History (Updated 10/12/22 @ 05:05 by Salma Gamboa MD) Surgical History Family History Grandmother Family history of CHF (congestive heart failure) Family history of cancer Family history of diabetes mellitus Aunt Family history of hypertension Uncle Family history of COPD (chronic obstructive pulmonary disease) Social History Within the past year, how often did you have a drink containing alcohol: never Score interpretation: A score less than 4 is consistent with normal alcohol consumption. 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 Highest level of school completed/degree received: some college, no degree Are you now , , , , never or living with a partner: living with partner In a typical week, how many times do you talk on the telephone with family, friends, or neighbors: once per week How often do you get together with friends or relatives: twice per week How often do you attend denominational or restorationist services: never Do you belong to any clubs or organizations such as denominational groups unions, fra[employer]unch[employer]way or athletic groups, or school groups: yes Total score: 3 Score interpretation: A score of greater than or equal to 2 indicates the lowest level of social isolation. Little interest or pleasure in doing things: not at all Feeling down, depressed, or hopeless: not at all Feel stressed/tense/nervous/anxious/difficulty sleeping: only a little Life stressors: recent of family or friend Do you think of yourself as: straight/heterosexual Gender Identity: male Exam Narrative Exam Narrative: Nurses notes and vital signs reviewed and patient is not hypoxic. General: Nontoxic, Well-appearing and in no apparent distress. Skin: Warm, dry, no pallor noted. No Rash Head: Normocephalic, atraumatic. Neck: Supple, non-tender. Eye: Pupils are equal, round and EOMI. No scleral icterus. Ears, Nose, Mouth, and Throat: TM clear, no posterior oropharynx erythema or nasal mucosal hypertrophy, uvula is mid-line Oral mucosa is moist Cardiovascular: Regular Rate and Rhythm without murmur, gallop or rub. Respiratory: No accessory muscle use or respiratory distress. Lungs are clear to auscultation, no wheezing, rales or rhonchi Chest Wall: no tenderness Back: No midline thoracic or lumbar vertebral tenderness. No CVA tenderness Musculoskeletal: normal ROM, no calf or popliteal tenderness, no lower extremity edema/swelling GI: Abdomen is soft, non-distended. Normal bowel sounds. No masses appreciated. No tenderness to palpation. No rebound, guarding, or rigidity noted. Neurological: A&O x4. No cranial nerve dysfunction observed. No truncal ataxia. Moves all extremities. Sensation intact. Psychiatric: Cooperative and interactive. Normal mood and affect. Constitutional Vital Signs, click to edit/add: Last Vital Signs Temp 98.1 F 10/12/22 03:17 Pulse 64 10/12/22 03:17 Resp 18 10/12/22 03:17 BP 150/96 H 10/12/22 03:17 Pulse Ox 97 10/12/22 03:17 O2 Del Method Room Air 10/12/22 03:17 Course Vital Signs Vital signs: Vital Signs Temperature 98.1 F 10/12/22 03:17 Pulse Rate 64 10/12/22 03:17 Respiratory Rate 18 10/12/22 03:17 Blood Pressure 150/96 H 10/12/22 03:17 Pulse Oximetry 97 10/12/22 03:17 Oxygen Delivery Method Room Air 10/12/22 03:17 Temperature 98.1 F 10/12/22 03:17 Pulse Rate 64 10/12/22 03:17 Respiratory Rate 18 10/12/22 03:17 Blood Pressure 150/96 H 10/12/22 03:17 Pulse Oximetry 97 10/12/22 03:17 Oxygen Delivery Method Room Air 10/12/22 03:17 MDM - Abdominal Pain MDM Narrative Medical decision making narrative: An IV established. He was given 1 L of normal saline. Patient was given Zofran, and Phenergan. Symptoms resolved. Patient was comfortable and sleeping. Tolerating by mouth. He was given a dose of Zofran and Phenergan to take at home. Labs were done and he has improved. He is also advised to make sure he goes to the pharmacy 1st thing in the morning to brain picker his prescription. At this time the patient is without objective evidence of an acute process requiring hospitalization or inpatient management. The patient has remained hemodynamically stable. No additional indication for emergent studies at this time. I answered all questions. Discussed discharge instructions including standard anticipatory guidance and what should prompt a return to the emergency department, including if they get worse are not getting better or develops any new or concerning symptoms. I've given them specific time frame in which to follow-up, and who to follow-up with. The patient demonstrates understanding. Patient is nontoxic and stable for discharge with outpatient follow-up. This note was created with the assistance of a speech recognition program. Although the intention is to generate documents that actually reflects the content of the visit, no guarantees can be provided that every mistake has been identified and corrected by editing. Differential Diagnosis Differential diagnosis: Likely abdominal pain, gastroenteritis, pancreatitis and small bowel obstruction Lab Data Attestation: I reviewed the patient's lab results. Labs: Lab Results 10/12/22 Range/Units 03:24 WBC 15.0 H (4.0-11.0) 10^3/uL RBC 5.03 (4.70-6.10) 10^6/uL Hgb 15.9 (14.0-18.0) g/dL Hct 44.8 (42.0-54.0) % MCV 89.1 (80.0-94.0) fL MCH 31.6 (25.9-34.0) pg MCHC 35.5 H (29.9-35.2) g/dL RDW 12.0 (11.0-15.0) % Plt Count 307 (150-450) 10^3/uL MPV 10.2 (9.5-13.5) fL Neut % (Auto) 77.9 H (43.0-75.0) % Lymph % (Auto) 16.0 L (20.5-60.0) % [place] % (Auto) 5.4 (1.7-12.0) % Eos % (Auto) 0.1 L (0.9-7.0) % Baso % (Auto) 0.2 (0.2-2.0) % Neut # (Auto) 11.7 H (1.4-6.5) 10^3/uL Lymph # (Auto) 2.4 (1.2-3.8) 10^3/uL [place] # (Auto) 0.8 (0.3-0.8) 10^3/uL Eos # (Auto) 0.0 (0.0-0.7) 10^3/uL Baso # (Auto) 0.0 (0.0-0.1) 10^3/uL Abs Immat Gran (auto) 0.06 H (0.00-0.03) 10^3/uL Imm/Tot Granulo (auto) 0.4 (0.0-0.5) % Sodium 136 (136-145) mmol/L Potassium 3.5 (3.5-5.1) mmol/L Chloride 101 (98-107) mmol/L Carbon Dioxide 20.7 L (21.0-32.0) mmol/L Anion Gap 17.8 BUN 29.0 H (7.0-18.0) mg/dL Creatinine 1.52 H (0.70-1.30) mg/dL Est GFR ( Amer) >60 (>=60) Est GFR (Non-Af Amer) 50 L (>=60) BUN/Creatinine Ratio 19.1 Glucose 133 H (74-106) mg/dL Lactate 1.6 (0.4-2.0) mmol/L Calcium 9.8 (8.5-10.1) mg/dL Total Bilirubin 0.9 (0.2-1.0) mg/dL AST 74 H (15-37) U/L ALT 51 (16-63) U/L Alkaline Phosphatase 85 (46-116) U/L Total Protein 8.7 H (6.4-8.2) g/dL Albumin 5.5 H (3.4-5.0) g/dL Globulin 3.2 g/dL Albumin/Globulin Ratio 1.7 Lipase 51.0 L (73.0-393.0) U/L Discharge Plan Discharge Chief Complaint: Abdominal Pain Clinical Impression: Nausea and vomiting Patient Disposition: Home, Self-Care Time of Disposition Decision: 05:04 Condition: Good Mode of Transportation: Private Vehicle Prescriptions / Home Meds: No Action pantoprazole 40 mg tablet,delayed release (DR/EC) 40 mg PO DAILY capsaicin 0.1 % cream 1 applic TOPICAL DAILY ondansetron 4 mg tablet,disintegrating 4 mg PO Q6H PRN (Reason: nausea and vomiting) Qty: 28 0RF hyoscyamine sulfate 0.125 mg tablet 0.125 mg PO Q12H PRN (Reason: dyspepsia) 15 Days Qty: 30 0RF Instructions: Acute Nausea and Vomiting (ED) Stand Alone Forms: Portal Instructions Referrals: [facility] [Primary Care Provider] - 1 week
--- NOTE | 2022-10-12 05:35 | PC.NURSE ---
Pt finally out of the shower. States that he still feels terrible. Pt aware that test results show nothing. Pt encouraged to call his family Dr for follow up. Discharge instructions given to pt along with Dylon to go.
== END 2022-10-12 05:35 | disposition home or self-care (01) ==
PROVIDERS: Emergency Provider Emergency Medicine
DX: R11.2 Nausea with vomiting, unspecified (principal); Z79.899 Other long term (current) drug therapy; F17.210 Nicotine dependence, cigarettes, uncomplicated; F12.90 Cannabis use, unspecified, uncomplicated
CPT/HCPCS: 36415; 74022; 80053; 83605; 83690; 85025; 96374; 96375; 99284

== ENCOUNTER 2022-10-14 16:44 | Observation (INO) | payer OTHER, SELFPAY ==
[2022-10-14] VITALS (31 sets, daily range): BP systolic 105–140; BP diastolic 74–82; PULSE 67–116; RESP 8–26; TEMP 36.8–37.2; O2SAT 96–99; BMI 25.1; BMI 23.9
--- NOTE | 2022-10-14 17:00 | ED_ITS ---
HPI - General Adult General Chief complaint: Nausea/Vomiting/Diarrhea Stated complaint: POSS KIDNEY ISSUES Time Seen by Provider: 10/14/22 16:50 Source: patient Mode of arrival: walk-in Limitations: no limitations History of Present Illness HPI narrative: The patient presented to us with right flank pain associated with decreased urine output for the last 24 to 48 hours the patient was just evaluated in the ER almost 3 days ago and admitted to the hospital after he presented again for nausea vomiting and epigastric abdominal pain The patient mentioned having history of chronic abdominal pain but this the fir st time that he have decreased urine output and severe symptoms The pain is epigastric and continuous not radiating and there is associated decreased p.o. intake Related Data Home Medications Medication Instructions Recorded Confirmed capsaicin 0.1 % topical cream 1 applic topical DAILY 10/11/22 10/11/22 pantoprazole 40 mg tablet,delayed 40 mg PO DAILY 10/11/22 10/11/22 release Previous Rx's Medication Instructions Recorded hyoscyamine sulfate 0.125 mg tablet 0.125 mg PO Q12H PRN dyspepsia 15 10/11/22 days #30 tabs ondansetron 4 mg disintegrating 4 mg PO Q6H PRN nausea and 10/11/22 tablet vomiting #28 tabs Allergies Allergy/AdvReac Type Severity Reaction Status Date / Time No Known Drug Allergies Allergy Verified 10/12/22 03:20 Review of Systems ROS Status of ROS 10 or more systems reviewed and unremarkable except as noted in history and below [facility] Medical History (Updated 10/14/22 @ 18:33 by Ernestina Ramirez MD) Surgical History Family History Grandmother Family history of CHF (congestive heart failure) Family history of cancer Family history of diabetes mellitus Aunt Family history of hypertension Uncle Family history of COPD (chronic obstructive pulmonary disease) Social History Within the past year, how often did you have a drink containing alcohol: never Score interpretation: A score less than 4 is consistent with normal alcohol consumption. 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 Highest level of school completed/degree received: some college, no degree Are you now , , , , never or living with a partner: living with partner In a typical week, how many times do you talk on the telephone with family, friends, or neighbors: once per week How often do you get together with friends or relatives: twice per week How often do you attend mu-ism or methodist services: never Do you belong to any clubs or organizations such as mu-ism groups unions, fraRoomster or athletic groups, or school groups: yes Total score: 3 Score interpretation: A score of greater than or equal to 2 indicates the lowest level of social isolation. Little interest or pleasure in doing things: not at all Feeling down, depressed, or hopeless: not at all Feel stressed/tense/nervous/anxious/difficulty sleeping: only a little Life stressors: recent of family or friend Do you think of yourself as: straight/heterosexual Gender Identity: male Exam Constitutional Vital Signs, click to edit/add: Last Vital Signs Temp 98.9 F 10/14/22 16:51 Pulse 98 H 10/14/22 16:51 Resp 10/14/22 16:51 BP 105/74 10/14/22 16:51 Pulse Ox 99 10/14/22 16:51 O2 Del Method Room Air 10/14/22 16:51 Course Vital Signs Vital signs: Vital Signs Temperature 98.9 F 10/14/22 16:51 Pulse Rate 98 H 10/14/22 16:51 Respiratory Rate 20 10/14/22 16:51 Blood Pressure 105/74 10/14/22 16:51 Pulse Oximetry 99 10/14/22 16:51 Oxygen Delivery Method Room Air 10/14/22 16:51 Temperature 98.9 F 10/14/22 16:51 Pulse Rate 98 H 10/14/22 16:51 Respiratory Rate 20 10/14/22 16:51 Blood Pressure 105/74 10/14/22 16:51 Pulse Oximetry 99 10/14/22 16:51 Oxygen Delivery Method Room Air 10/14/22 16:51 Medical Decision Making MDM Narrative Medical decision making narrative: The patient EKG showing sinus rhythm with a heart rate of [address] elevation or depression CBC is still swollen showing leukocytosis and the patient chemistry showing some elevated kidney function with acute kidney injury The patient was started on IV fluids morphine for pain and CT of the abdomen pelvis is ordered and pending the pt care will be transfered to Dr Bob Lab Data Labs: Lab Results 10/14/22 10/14/22 Range/Units 17:00 17:05 WBC 20.2 H (4.0-11.0) 10^3/uL RBC 5.72 (4.70-6.10) 10^6/uL Hgb 18.1 H (14.0-18.0) g/dL Hct 49.3 (42.0-54.0) % MCV 86.2 (80.0-94.0) fL MCH 31.6 (25.9-34.0) pg MCHC 36.7 H (29.9-35.2) g/dL RDW 11.7 (11.0-15.0) % Plt Count 341 (150-450) 10^3/uL MPV 10.8 (9.5-13.5) fL Sodium 127 L (136-145) mmol/L Potassium 3.1 L (3.5-5.1) mmol/L Chloride 89 L (98-107) mmol/L Carbon Dioxide 20.4 L (21.0-32.0) mmol/L Anion Gap 20.7 BUN 48.0 H (7.0-18.0) mg/dL Creatinine 3.20 H (0.70-1.30) mg/dL Est GFR ( Amer) 26 L (>=60) Est GFR (Non-Af Amer) 21 L (>=60) BUN/Creatinine Ratio 15.0 Glucose 134 H (74-106) mg/dL Calcium 9.7 (8.5-10.1) mg/dL Total Bilirubin 1.0 (0.2-1.0) mg/dL AST 36 (15-37) U/L ALT 43 (16-63) U/L Alkaline Phosphatase 101 (46-116) U/L Troponin I High Sens 13.5 (4.0-76.1) pg/mL Total Protein 10.0 H (6.4-8.2) g/dL Albumin 6.0 H (3.4-5.0) g/dL Globulin 4.0 g/dL Albumin/Globulin Ratio 1.5 Lipase 83.0 (73.0-393.0) U/L Urine Color Dk. yellow (YELLOW) Urine Clarity Sl cloudy (CLEAR) Urine pH 5.0 (5.0-9.0) Ur Specific [place] >=1.030 A (1.005-1.025) Urine Protein >=300 A (NEG/TRACE) mg/dL Urine Glucose (UA) Negative (NEGATIVE) mg/dL Urine Ketones Negative (NEGATIVE) mg/dL Urine Occult Blood Trace-i (NEGATIVE) Urine Nitrite Negative (NEGATIVE) Urine Bilirubin Moderate A (NEGATIVE) Urine Urobilinogen 1.0 (0.2-1.0) EU/dL Ur Leukocyte Esterase Negative (NEGATIVE) Urine RBC 0-2 (0-2) #/HPF Urine WBC 0-2 A (NONE SEEN) #/HPF Ur Squamous Epith Cells Few A (NONE/RARE) #/LPF Ur Transition Epith Cell Rare A (NONE SEEN) #/LPF Urine Crystals None seen (None Seen) #/HPF Urine Bacteria Trace A (NONE SEEN) #/HPF Urine Casts Seen A (NONE SEEN) #/LPF Hyaline Casts Many Urine Mucus Trace A (NONE SEEN) Ur Culture Indicated? No Urine Opiates Screen Negative (NEGATIVE) Ur Buprenorphine Scrn Negative (NEGATIVE) Ur Oxycodone Screen Negative (NEGATIVE) Urine Methadone Screen Negative (NEGATIVE) Ur Propoxyphene Screen Negative (NEGATIVE) Ur Barbiturates Screen Negative (NEGATIVE) U Tricyclic Antidepress Negative (NEGATIVE) Ur Phencyclidine Scrn Negative (NEGATIVE) Ur Amphetamines Screen Negative (NEGATIVE) U Methamphetamines Scrn Negative (NEGATIVE) U Benzodiazepines Scrn Negative (NEGATIVE) Urine Cocaine Screen Negative (NEGATIVE) U Cannabinoids Screen Positive A (NEGATIVE) Discharge Plan Discharge Patient Disposition: Still a Patient
--- NOTE | 2022-10-14 17:02 | ECG_ITS ---
The [facility] Test Date: 2022-10-14 Pat Name: MAURICIO HAYNES Department: Room: - Gender: Male Clean Up Person: : 1980 Requested By: [id number] Order Number: [id number] Reading MD: VALDEZ CARNEY Measurements Intervals [place] Rate: 90 P: 80 [place]: 128 QRS: 81 QRSD: 80 T: 73 QT: 394 QTc: 442 Interpretive Statements 1100 Sinus rhythm 1102 Sinus arrhythmia [address] elevation 9130 borderline ECG No previous ECG available for comparison Electronically Signed On 10-14-2022 18:10:47 EDT by VALDEZ CARNEY
[2022-10-14 17:19] LABS: Bilirubin Urine MODERATE (NEGATIVE); Blood Urine TRACE-I (NEGATIVE); Clarity Urine SL CLOUDY (CLEAR); Color Urine DK. YELLOW (YELLOW); Glucose Urine UA NEGATIVE (NEGATIVE); Ketones Urine NEGATIVE (NEGATIVE); Leukocyte Esterase Urine NEGATIVE (NEGATIVE); Nitrite Urine NEGATIVE (NEGATIVE); Protein Urine >=300 mg/dL (NEG/TRACE); Specific Gravity Urine >=1.030 (1.005-1.025)
[2022-10-14 17:27] LABS: Hematocrit 49.3 % (42.0-54.0); Hemoglobin 18.1 g/dL (14.0-18.0); Mean Corpuscular HGB Conc 36.7 g/dL (29.9-35.2); Mean Corpuscular Hemoglobin 31.6 pg (25.9-34.0); Mean Corpuscular Volume 86.2 fL (80.0-94.0); Mean Platelet Volume 10.8 fL (9.5-13.5); Platelet Count 341 10^3/uL (150-450); Red Blood Count 5.72 10^6/uL (4.70-6.10); Red Cell Distribution Width 11.7 % (11.0-15.0); White Blood Count 20.2 10^3/uL (4.0-11.0)
[2022-10-14 17:31] LABS: Urine Microscopic Indicated YES
[2022-10-14 17:34] LABS: Amphetamine Screen Urine NEGATIVE (NEGATIVE); Barbiturates Screen Urine NEGATIVE (NEGATIVE); Benzodiazepines Screen Urine NEGATIVE (NEGATIVE); Buprenorphine Screen Urine NEGATIVE (NEGATIVE); Cannabinoid Screen Urine POSITIVE (NEGATIVE); Cocaine Screen Urine NEGATIVE (NEGATIVE); Methadone Screen Urine NEGATIVE (NEGATIVE); Methamphetamines Screen Urine NEGATIVE (NEGATIVE); Opiate Screen Urine NEGATIVE (NEGATIVE); Oxycodone Screen Urine NEGATIVE (NEGATIVE); Phencyclidine Screen Urine NEGATIVE (NEGATIVE); Tricyclic Antidepressant Urine NEGATIVE (NEGATIVE)
[2022-10-14 17:35] LABS: Bacteria Urine TRACE #/HPF (NONE SEEN); Cast Seen? SEEN #/LPF (NONE SEEN); Hyaline Casts Urine MANY; Mucus Urine TRACE (NONE SEEN); RBC Urine 0-2 #/HPF (0-2); Squamous Epithelial Cell Urine FEW #/LPF (NONE/RARE); Transitional Epi Cells Urine RARE #/LPF (NONE SEEN); WBC Urine 0-2 #/HPF (NONE SEEN)
[2022-10-14 17:37] LABS: Urine Culture Indicated NO
[2022-10-14 17:38] LABS: Crystals Seen? None Seen #/HPF (None Seen)
[2022-10-14] MEDS: 0.9 % SODIUM CHLORIDE 1,000 ML 1000 ML IV (17:42)
[2022-10-14] MEDS: MORPHINE SULFATE 2 MG/ML SYRINGE IV (17:42)
[2022-10-14] MEDS: PROCHLORPERAZINE 10 MG/2 ML VIAL IV (17:42)
[2022-10-14] MEDS: FAMOTIDINE/PF 20 MG/2 ML VIAL IV (17:42)
[2022-10-14 17:57] LABS: Alanine Aminotransferase 43 U/L (16-63); Albumin Globulin Ratio 1.5; Alkaline Phosphatase 101 U/L (46-116); Anion Gap 20.7; Aspartate Amino Transferase 36 U/L (15-37); Calcium 9.7 mg/dL (8.5-10.1); Carbon Dioxide 20.4 mmol/L (21.0-32.0); Chloride 89 mmol/L (98-107); Estimated GFR (African America 26 (>=60); Estimated GFR (Non-African Ame 21 (>=60); Glucose 134 mg/dL (74-106); Potassium 3.1 mmol/L (3.5-5.1); Sodium 127 mmol/L (136-145); Troponin I High Sensitivity 13.5 pg/mL (4.0-76.1)
--- NOTE | 2022-10-14 18:17 | CT_ITS ---
[address] [address] Patient Name: MAURICIO HAYNES MRN: [id number] date: 1980 Sex: M Assigned Patient Location: ER Current Patient Location: .[facility] Accession/Order Number: [id number] Exam Date: 10/14/2022 18:28 Report Date: 10/14/2022 20:09 At the request of: DEYSI PA Procedure: CT abdomen pelvis wo con CLINICAL HISTORY: right flank pain and decrease urine out put. EXAMINATION: Unenhanced CT scan of the abdomen and pelvis: 10/14/2022. COMPARISON: Unenhanced CT scan of the abdomen and pelvis: 10/11/2022. TECHNIQUE: 3 mm axial images from lung bases through ischial tuberosities without intravenous or oral contrast were obtained. Sagittal, coronal reconstructions were also performed. FINDINGS: The lung bases appear normal. The heart size seems normal. CT ABDOMEN: For a noncontrast study the liver, spleen, pancreas, adrenal glands, kidneys for a noncontrast CT are normal. The patient status post cholecystectomy. There is no hydronephrosis, nephrolithiasis or perinephric fat stranding. The abdominal aorta is mildly atherosclerotic. Bowel loops are of normal caliber. There is a normal-appearing appendix. CT PELVIS: The bladder is normal. There is no ureterolithiasis. The prostate seems normal. There is no pelvic adenopathy. There are no focal fluid collections. The visualized osseous structures demonstrate no gross abnormalities. CT/CT abdomen pelvis wo con IMPRESSION: 1. There is no nephrolithiasis or ureterolithiasis. 2. Normal appendix. 3. Prior cholecystectomy. 4. No significant interval change since the study performed 3 days ago. Electronically authenticated by: GRECIA BENITO Date: 10/14/2022 20:09
[2022-10-14 18:25] LABS: Segmented Neut Absolute Manual 15.15 10^3/uL (1.4-6.5)
[2022-10-14 18:26] LABS: Monocytes Absolute Manual 2.22 10^3/uL (0.30-0.80)
[2022-10-14 18:32] LABS: Lymphocytes Absolute Manual 2.82 10^3/uL (1.20-3.80)
[2022-10-14] MEDS: 0.9 % SODIUM CHLORIDE 1,000 ML 999 ML IV (20:36)
--- NOTE | 2022-10-15 01:53 | P.PN_ITS ---
Progress Note: Subjective Subjective Interval history: Pt reports intractable vomiting since last Saturday. He states that this has been an ongoing problem for several years and was recently seen for same. He awoke Saturday morning to go to work and prior to any ingestion of food, began vomiting. He had over 20 episodes of vomiting that day and his nausea and vomiting have slowly improved. He reports having only one episode today, but began to lose his appetite and felt generally unwell so he came to the ED. He was noted to have a markedly elevated Creatinine in the ED and was referred for admission for dehydration and PANCHO. At the time of my exam, he denies nausea, complains of mild aching abdominal pa in and tenderness and a feeling of overall restlessness. He was given 2L of IV Fluid in the ED. He was at one time referred for evaluation by a [employer] but for various reasons he was unable to follow up and he gave up. Many times he has been told that his vomiting is due to marijuana however he stopped using marijuana for a period of 2 years and still had the same issues. He does occasionally smoke marijuana but not an excessive amount. He reports never having normal bowel movements. They are always loose and oily. He has never had a colonoscopy. Exam Narrative Exam Narrative: General: NAD. Seated up in bed. HEENT: NC/AT, no nasal discharge, PEERL Neck: FROM Cards: RRR, No murmur Pulm: CTA B/L Gastro: Mild tenderness. No guarding. Musculosk: DIAZ, No edema Neuro: AAOx3 Psych: Anxious Constitutional Vital Signs, click to edit/add: Last Vital Signs Temp 98.2 F 10/14/22 22:15 Pulse 90 10/14/22 22:15 Resp 18 10/14/22 22:15 BP 140/82 H 10/14/22 22:15 Pulse Ox 98 10/14/22 22:15 O2 Del Method Room Air 10/14/22 22:15 Progress Note: Objective Labs Labs: Short CBC 10/14/22 Range/Units 17:00 WBC 20.2 H (4.0-11.0) 10^3/uL Hgb 18.1 H (14.0-18.0) g/dL Hct 49.3 (42.0-54.0) % Plt Count 341 (150-450) 10^3/uL BMP 10/14/22 17:00 Sodium 127 L Potassium 3.1 L Chloride 89 L Carbon Dioxide 20.4 L BUN 48.0 H Creatinine 3.20 H Glucose 134 H Calcium 9.7 Liver Function 10/14/22 Range/Units 17:00 Total Bilirubin 1.0 (0.2-1.0) mg/dL AST 36 (15-37) U/L ALT 43 (16-63) U/L Alkaline Phosphatase 101 (46-116) U/L Albumin 6.0 H (3.4-5.0) g/dL Urine 10/14/22 Range/Units 17:05 Urine Color Dk. yellow (YELLOW) Urine Clarity Sl cloudy (CLEAR) Urine pH 5.0 (5.0-9.0) Ur Specific [place] >=1.030 A (1.005-1.025) Urine Protein >=300 A (NEG/TRACE) mg/dL Urine Glucose (UA) Negative (NEGATIVE) mg/dL Progress Note: A&P Assessment and Plan (1) Acute kidney injury: Assessment and Plan: - Admit to inpatient - Continue IV Fluid - Pt received 2L IV NS in ED - Monitor response - Check Mg level as pt reports reslessness - Monitor I/O (2) Nausea: Assessment and Plan: IMPROVING - Zofran PRN - Clear liquid diet (3) Abdominal pain, chronic, generalized: Assessment and Plan: - Tylenol PRN - monitor response - if pain should worsen, consider CT Ab/Pel Telemedicine Attestation Telemedicine Attestation I conducted this encounter from [[place]] via secure live, [id number] video conference with the patient, located at [facility] with [nurse]. Prior to the interview, the risks and benefits of telemedicine were discussed with the patient and verbal consent was obtained.
[2022-10-15] MEDS: 0.9 % SODIUM CHLORIDE 1,000 ML 100 ML IV ×3 (03:02→23:41)
[2022-10-15] MEDS: ACETAMINOPHEN 325 MG TABLET 650 MG PO ×2 (03:02→21:22)
[2022-10-15] MEDS: LORAZEPAM 2 MG/ML 1 ML VIAL 1 MG IV (03:04)
[2022-10-15 04:23] VITALS: BP 138/82; PULSE 85; RESP 16; TEMP 36.4; O2SAT 95
[2022-10-15 04:38] LABS: Basophils Absolute Auto 0.1 10^3/uL (0.0-0.1); Basophils Percent Auto 0.4 % (0.2-2.0); Eosinophils Absolute Auto 0.1 10^3/uL (0.0-0.7); Eosinophils Percent Auto 0.9 % (0.9-7.0); Hematocrit 40.6 % (42.0-54.0); Hemoglobin 14.4 g/dL (14.0-18.0); Immature Granulocytes Abs Auto 0.08 10^3/uL (0.00-0.03); Immature Granulocytes Pct Auto 0.6 % (0.0-0.5); Lymphocytes Absolute Auto 4.3 10^3/uL (1.2-3.8); Lymphocytes Percent Auto 33.9 % (20.5-60.0); Mean Corpuscular HGB Conc 35.5 g/dL (29.9-35.2); Mean Corpuscular Hemoglobin 31.4 pg (25.9-34.0); Mean Corpuscular Volume 88.5 fL (80.0-94.0); Mean Platelet Volume 10.4 fL (9.5-13.5); Monocytes Absolute Auto 1.1 10^3/uL (0.3-0.8); Monocytes Percent Auto 8.5 % (1.7-12.0); Neutrophils Absolute Auto 7.1 10^3/uL (1.4-6.5); Neutrophils Percent Auto 55.7 % (43.0-75.0); Platelet Count 234 10^3/uL (150-450); Red Blood Count 4.59 10^6/uL (4.70-6.10); Red Cell Distribution Width 11.7 % (11.0-15.0); White Blood Count 12.7 10^3/uL (4.0-11.0)
[2022-10-15 05:02] LABS: Alanine Aminotransferase 35 U/L (16-63); Albumin Globulin Ratio 1.4; Albumin Level 4.4 g/dL (3.4-5.0); Alkaline Phosphatase 69 U/L (46-116); Anion Gap 15.3; Aspartate Amino Transferase 29 U/L (15-37); BUN Creatinine Ratio 21.7; Calcium 8.2 mg/dL (8.5-10.1); Carbon Dioxide 23.2 mmol/L (21.0-32.0); Chloride 97 mmol/L (98-107); Estimated GFR (African America 45 (>=60); Estimated GFR (Non-African Ame 37 (>=60); Globulin 3.2 g/dL; Glucose 108 mg/dL (74-106); Magnesium 2.2 mg/dL (1.8-2.4); Potassium 3.5 mmol/L (3.5-5.1); Sodium 132 mmol/L (136-145); Total Protein 7.6 g/dL (6.4-8.2)
[2022-10-15] MEDS: ENOXAPARIN SODIUM 40 MG/0.4 ML SYRINGE SUBQ (08:44)
[2022-10-15] MEDS: NICOTINE 21 MG PATCH.TD24 TD (09:41)
--- NOTE | 2022-10-15 11:45 | PM.HP ---
H&P: HPI History of Present Illness Chief complaint: Intractable nausea and vomiting Narrative: 42 y o male presents with intractable nausea, vomiting, inability to keep anything down for 2 weeks. He initially went to [place] ED and was discharged from there after receiving fluids and halidol and was told that he has cannabis hyperemesis syndrome. When his symptoms did not improve, he came to and was admitted for these symptoms and discharged home after his nausea improved. He then developed similar symptoms as soon as he went home and was uanble to keep anything down for past couple of days and finally came in last night when he could not take it anymore. He has not used marijuana since his symptoms onset 2 weeks ago. He has mild epigastric abd pain associated with throwing up. He also reports chronic diarrhea for years, with no blood in stool and still having liquid bowel movement, a few times a day, daily. Patient reports he experiences similar episodes of intractable nausea/vomiting every 6 months and has no GI issues between these episodes except for chronic diarrhea. On initial w/u, he was noted to have PANCHO and was admitted to the hospital for observation. He already feels better and was able to keep his breakfast down. Has mild abdominal pain. Feels tired and worn out due to his current illnss. Review of Systems ROS Status of ROS 10 or more systems reviewed and unremarkable except as noted in history and below [facility] Medical History Surgical History Family History Grandmother Family history of CHF (congestive heart failure) Family history of cancer Family history of diabetes mellitus Aunt Family history of hypertension Uncle Family history of COPD (chronic obstructive pulmonary disease) Social History Within the past year, how often did you have a drink containing alcohol: never Score interpretation: A score less than 4 is consistent with normal alcohol consumption. 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 Highest level of school completed/degree received: some college, no degree Are you now , , , , never or living with a partner: living with partner In a typical week, how many times do you talk on the telephone with family, friends, or neighbors: once per week How often do you get together with friends or relatives: twice per week How often do you attend orthodoxy or restoration services: never Do you belong to any clubs or organizations such as orthodoxy groups unions, fra[employer]ISSUEL[employer] or athletic groups, or school groups: yes Total score: 3 Score interpretation: A score of greater than or equal to 2 indicates the lowest level of social isolation. Little interest or pleasure in doing things: not at all Feeling down, depressed, or hopeless: not at all Feel stressed/tense/nervous/anxious/difficulty sleeping: only a little Life stressors: recent of family or friend Do you think of yourself as: straight/heterosexual Gender Identity: male Meds Home Medications and Allergies Home Medications Medication Instructions Recorded Confirmed Type capsaicin 0.1 % topical cream 1 applic topical DAILY 10/11/22 10/14/22 History hyoscyamine sulfate 0.125 mg tablet 0.125 mg PO Q12H PRN dyspepsia 15 10/11/22 10/14/22 Rx days #30 tabs ondansetron 4 mg disintegrating 4 mg PO Q6H PRN nausea and 10/11/22 10/14/22 Rx tablet vomiting #28 tabs pantoprazole 40 mg tablet,delayed 40 mg PO DAILY 10/11/22 10/14/22 History release Allergies Allergy/AdvReac Type Severity Reaction Status Date / Time No Known Drug Allergies Allergy Verified 10/12/22 03:20 Exam Constitutional Vital Signs, click to edit/add: Last Vital Signs Temp 97.6 F 10/15/22 04:23 Pulse 85 10/15/22 04:23 Resp 16 10/15/22 04:23 BP 138/82 H 10/15/22 04:23 Pulse Ox 95 10/15/22 04:23 O2 Del Method Room Air 10/15/22 04:23 Documenting provider has reviewed patient's vital signs: yes Common normals: no apparent distress and oriented x3 General appearance: cooperative and comfortable HENCT Common normals: normocephalic and head/scalp atraumatic Respiratory Common normals: normal respiratory effort, no retractions, no use of accessory muscles and clear to auscultation bilaterally Cardio Common normals: no JVD, regular rate, regular rhythm, S1 normal heart sound, S2 normal heart sound and no murmurs GI Common normals: Normal to inspection, nondistended, normoactive bowel sounds present, soft to palpation, non-tender and no hepatosplenomegaly Neuro Common normals: oriented x3, CN's II-XII intact bilaterally, moves all extremities, no focal motor deficits and no sensory deficits noted Psych Common normals: mental status grossly normal, thought process normal, denies homicidal ideation and denies suicidal ideation Results Labs Labs: Short CBC 10/14/22 10/15/22 Range/Units 17:00 04:20 WBC 20.2 H 12.7 H (4.0-11.0) 10^3/uL Hgb 18.1 H 14.4 (14.0-18.0) g/dL Hct 49.3 40.6 L (42.0-54.0) % Plt Count 341 234 (150-450) 10^3/uL BMP 10/14/22 10/15/22 17:00 04:20 Sodium 127 L 132 L Potassium 3.1 L 3.5 Chloride 89 L 97 L Carbon Dioxide 20.4 L 23.2 BUN 48.0 H 43.0 H Creatinine 3.20 H 1.98 H Glucose 134 H 108 H Calcium 9.7 8.2 L Liver Function 10/14/22 10/15/22 Range/Units 17:00 04:20 Total Bilirubin 1.0 1.0 (0.2-1.0) mg/dL AST 36 29 (15-37) U/L ALT 43 35 (16-63) U/L Alkaline Phosphatase 101 69 (46-116) U/L Albumin 6.0 H 4.4 (3.4-5.0) g/dL Urine 10/14/22 Range/Units 17:05 Urine Color Dk. yellow (YELLOW) Urine Clarity Sl cloudy (CLEAR) Urine pH 5.0 (5.0-9.0) Ur Specific [place] >=1.030 A (1.005-1.025) Urine Protein >=300 A (NEG/TRACE) mg/dL Urine Glucose (UA) Negative (NEGATIVE) mg/dL Assessment and Plan Assessment and Plan (1) Acute kidney injury: Assessment and Plan: Normal baseline Cr. P/w Cr of 3.2 Likely pre renal. Improving with hydration c/w same. Monitor UO and Cr (2) Cyclic vomiting syndrome: Assessment and Plan: Suspect CVS based on his symptoms, presentation. C/w supportive care, IVF and anti emetics Discussed refraining from marijuana use. Normal CT abd/pelvis. (3) Intractable nausea and vomiting: Assessment and Plan: From CVS. Improved. C/w IV hydration, anti emetics. (4) Leukocytosis: Assessment and Plan: likely reactive. Improving. Monitor.
[2022-10-15 12:12] VITALS: BMI 23.8
--- NOTE | 2022-10-15 12:48 | CM.NOTE ---
Rounds made with Dr. San, no discharge for today. No discharge needs are indentified for pt.
[2022-10-15 14:37] VITALS: BP 139/90; PULSE 69; RESP 16; TEMP 36.7; O2SAT 97
[2022-10-15] MEDS: PANTOPRAZOLE SODIUM 40 MG VIAL IV (14:48)
[2022-10-15 20:34] VITALS: BP 122/84; PULSE 85; RESP 16; TEMP 36.7; O2SAT 98
[2022-10-16 04:12] VITALS: BP 119/74; PULSE 68; RESP 18; TEMP 36.6; O2SAT 96
[2022-10-16 06:57] LABS: Basophils Percent Auto 0.4 % (0.2-2.0); Eosinophils Absolute Auto 0.1 10^3/uL (0.0-0.7); Eosinophils Percent Auto 1.9 % (0.9-7.0); Hematocrit 33.2 % (42.0-54.0); Immature Granulocytes Abs Auto 0.03 10^3/uL (0.00-0.03); Immature Granulocytes Pct Auto 0.4 % (0.0-0.5); Lymphocytes Absolute Auto 3.6 10^3/uL (1.2-3.8); Lymphocytes Percent Auto 49.3 % (20.5-60.0); Mean Corpuscular HGB Conc 36.1 g/dL (29.9-35.2); Mean Corpuscular Hemoglobin 31.7 pg (25.9-34.0); Mean Corpuscular Volume 87.8 fL (80.0-94.0); Mean Platelet Volume 10.2 fL (9.5-13.5); Monocytes Absolute Auto 0.6 10^3/uL (0.3-0.8); Monocytes Percent Auto 7.6 % (1.7-12.0); Neutrophils Percent Auto 40.4 % (43.0-75.0); Platelet Count 209 10^3/uL (150-450); Red Blood Count 3.78 10^6/uL (4.70-6.10); Red Cell Distribution Width 11.8 % (11.0-15.0); White Blood Count 7.4 10^3/uL (4.0-11.0)
[2022-10-16 07:15] LABS: Alanine Aminotransferase 30 U/L (16-63); Albumin Globulin Ratio 1.4; Albumin Level 3.4 g/dL (3.4-5.0); Alkaline Phosphatase 54 U/L (46-116); Aspartate Amino Transferase 24 U/L (15-37); BUN Creatinine Ratio 22.8; Bilirubin Total 0.6 mg/dL (0.2-1.0); Calcium 7.9 mg/dL (8.5-10.1); Carbon Dioxide 24.9 mmol/L (21.0-32.0); Chloride 102 mmol/L (98-107); Estimated GFR (African America >60 (>=60); Estimated GFR (Non-African Ame >60 (>=60); Globulin 2.4 g/dL; Glucose 100 mg/dL (74-106); Sodium 136 mmol/L (136-145); Total Protein 5.8 g/dL (6.4-8.2)
[2022-10-16 07:19] LABS: Potassium 2.9 mmol/L (3.5-5.1)
[2022-10-16] MEDS: NICOTINE 21 MG PATCH.TD24 TD (09:11)
[2022-10-16] MEDS: POTASSIUM CHLORIDE 10 MEQ ER TABLET 40 MEQ PO (09:11)
[2022-10-16] MEDS: ENOXAPARIN SODIUM 40 MG/0.4 ML SYRINGE SUBQ (09:11)
[2022-10-16] MEDS: 0.9 % SODIUM CHLORIDE 1,000 ML 100 ML IV (09:39)
[2022-10-16] MEDS: POTASSIUM CHLORIDE 40 MEQ in 0.9 % SODIUM CHLORIDE 250 ML 67.5 MEQ IV (10:00)
--- NOTE | 2022-10-16 11:36 | PM.DS1 ---
DS: Providers Provider Date of admission: 10/15/22 02:01 Primary care physician: [facility] Consults: 10/14/22 Consult to Dietitian Routine Reason For Exam: unexpected weight loss Attending physician on discharge: Shaikh Mena Discharging clinician: Shaikh Mena Anticipated date of discharge: 10/16/22 DS: Diagnosis Discharge Diagnosis (1) Acute kidney injury: Assessment and plan: Resolved with IV hydration (2) Cyclic vomiting syndrome: Assessment and plan: Symptoms improved. Tolerating oral diet. Denies N/V (3) Intractable nausea and vomiting: Assessment and plan: Due to cyclic vomiting syndrome. Resolved. Will recommend outpatient GI w/u (4) Leukocytosis: Assessment and plan: Likely reactive due to dehydration. Resolved. No source of infection identified. Did not receive abx (5) Hypokalemia: Assessment and plan: Low Potassium due to N/V and diarrhea. Gave PO and IV potassium Will d/c on oral potassium and asked pt to have his Potassium checked in 2-3 days Has an appt with PCP tomorrow (6) Chronic diarrhea: Assessment and plan: Chronic, ongoing, no blood in stool. 2-3 BM a day, no association with food intake Outpatient GI w/u recommended Never had Colonoscopy. DS: Summary Hospital Course Hospital Course: Patient p/w intractable N/V and inability to keep food down, admitted for severe dehydration, PANCHO. He was started on IV fluids. His symptoms were managed with anti emetics. No acute/sig pathology noted on CT abd/pevis Symptoms likely from cyclic vomiting syndrome. Resolved today and tolerating oral diet and denies any GI symptoms except for diarrhea that is chronic/ongoing and unchaged Stable for d/c. F/u with PCP tomorrow. Will d/c on oral zofran as needed, and oral potassium Will need his BMP checked in 2-3 days Time spent discussing smoking cessation with patient: 3 to 10 minutes Status at Discharge Functional status at discharge: independent ambulation Overall status at discharge: patient is back to baseline Time Spent with Patient Time attestation: Total time spent providing and/or coordinating discharge services: Time spent: greater than 30 minutes Exam Constitutional Vital Signs, click to edit/add: Last Vital Signs Temp 97.8 F 10/16/22 04:12 Pulse 68 10/16/22 04:12 Resp 18 10/16/22 04:12 BP 119/74 10/16/22 04:12 Pulse Ox 96 10/16/22 04:12 O2 Del Method Room Air 10/16/22 04:12 Documenting provider has reviewed patient's vital signs: yes Common normals: no apparent distress and oriented x3 General appearance: cooperative and comfortable HENMT Common normals: normocephalic and head/scalp atraumatic Respiratory Common normals: normal respiratory effort, no retractions, no use of accessory muscles and clear to auscultation bilaterally Cardio Common normals: no JVD, regular rate, regular rhythm, S1 normal heart sound, S2 normal heart sound and no murmurs GI Common normals: Normal to inspection, nondistended, normoactive bowel sounds present, soft to palpation, non-tender and no hepatosplenomegaly Neuro Common normals: oriented x3, CN's II-XII intact bilaterally, moves all extremities, no focal motor deficits and no sensory deficits noted Psych Common normals: mental status grossly normal, thought process normal, denies homicidal ideation and denies suicidal ideation DS: Data Data Completed and Pending Labs on day of discharge: Labs from last 24 hours 10/16/22 06:48 WBC 7.4 RBC 3.78 L Hgb 12.0 L Hct 33.2 L MCV 87.8 MCH 31.7 MCHC 36.1 H RDW 11.8 Plt Count 209 MPV 10.2 Neut % (Auto) 40.4 L Lymph % (Auto) 49.3 [place] % (Auto) 7.6 Eos % (Auto) 1.9 Baso % (Auto) 0.4 Neut # (Auto) 3.0 Lymph # (Auto) 3.6 [place] # (Auto) 0.6 Eos # (Auto) 0.1 Baso # (Auto) 0.0 Abs Immat Gran (auto) 0.03 Imm/Tot Granulo (auto) 0.4 Sodium 136 Potassium 2.9 L* Chloride 102 Carbon Dioxide 24.9 Anion Gap 12.0 BUN 21.0 H Creatinine 0.92 Est GFR ( Amer) >60 Est GFR (Non-Af Amer) >60 BUN/Creatinine Ratio 22.8 Glucose 100 Calcium 7.9 L Total Bilirubin 0.6 AST 24 ALT 30 Alkaline Phosphatase 54 Total Protein 5.8 L Albumin 3.4 Globulin 2.4 Albumin/Globulin Ratio 1.4 Discharge Plan Discharge Disposition: Home, Self-Care Discharge Medications: New ondansetron 4 mg tablet,disintegrating 4 mg PO Q8H PRN (Reason: nausea and vomiting) 6 Days Qty: 14 0RF potassium chloride 20 mEq tablet extended release 20 meq PO DAILY Qty: 30 0RF Continued pantoprazole 40 mg tablet,delayed release (DR/EC) 40 mg PO DAILY capsaicin 0.1 % cream 1 applic TOPICAL DAILY ondansetron 4 mg tablet,disintegrating 4 mg PO Q6H PRN (Reason: nausea and vomiting) Qty: 28 0RF hyoscyamine sulfate 0.125 mg tablet 0.125 mg PO Q12H PRN (Reason: dyspepsia) 15 Days Qty: 30 0RF Activity: increase activity as tolerated and resume usual activities as tolerated Diet: advance to your usual diet Forms: Portal Instructions Follow Up Appointments: PCP in one week Outpatient GI follow up BMP in 2-3 days
--- NOTE | 2022-10-16 11:58 | CM.NOTE ---
Rounds made with Dr. San. Plan for discharge today. Will need to follow up with a Family physician. Mr. King states he has appointment tomorrow with a physician in [place] ([facility]).
[2022-10-16 13:40] VITALS: BP 113/68; PULSE 63; RESP 16; TEMP 36.6; O2SAT 98
[2022-10-16] MEDS: PANTOPRAZOLE SODIUM 40 MG VIAL IV (13:53)
--- NOTE | 2022-10-17 12:23 | CM.DCFOLLOWU ---
First attempt at d/c follow up call today-no answer.
--- NOTE | 2022-10-18 11:55 | CM.DCFOLLOWU ---
Second attempt at discharge follow up phone call-no answer.
== END 2022-10-16 14:32 | disposition home or self-care (01) ==
LOC: ER 19:56 → MS 10-15 11:46
PROVIDERS: Emergency Medicine; Internal Medicine; Admitting Provider Internal Medicine; Emergency Provider Internal Medicine; Visit Provider Internal Medicine
DX: N17.9 Acute kidney failure, unspecified (principal); R11.15 Cyclical vomiting syndrome unrelated to migraine; D72.829 Elevated white blood cell count, unspecified; R11.2 Nausea with vomiting, unspecified; E87.6 Hypokalemia; F17.210 Nicotine dependence, cigarettes, uncomplicated; K52.9 Noninfective gastroenteritis and colitis, unspecified; F12.90 Cannabis use, unspecified, uncomplicated; Z79.899 Other long term (current) drug therapy
CPT/HCPCS: 36415; 74022; 74176; 80053; 80307; 81003; 81015; 83605; 83690; 83735; 84484; 85007; 85025; 93005; 96361; 96372; 96374; 96375; 96376; 99284; 99285; G0378; J3480; Q3014